=== PATIENT | male | born 1950 | race Caucasian/White ===

== ENCOUNTER 2022-10-10 08:04 | Outpatient (CLI) | payer MEDICARE, SELFPAY ==
--- NOTE | ~2022-10-10 | MR_ITS ---
EXAMINATION: MR pelvis wo/w con DATE: 10/10/2022 09:34 INDICATION: Malignant neoplasm of the prostate TECHNIQUE: Magnetic resonance imaging (MRI) of the pelvis was performed without and with 15 mL Multih ance intravenous contrast. Full-field sequences of the pelvis included axial and coronal T2-weighted SS FSE, axial, sagittal and coronal 2D FIESTA, axial 2D FIESTA FS, axial SSFSE-IR KAVIN, axial dual-ech o T1-weighted FSPGR, axial and coronal T1 weighted LAVA, 3D axial T2 Cube, axial diffusion-weighted S E with apparent diffusion coefficient (ADC) maps. Postcontrast sequences included a time course axial T1-weighted LAVA and sagittal and coronal T1-weighted LAVA. COMPARISON: None. FINDINGS: There is a small collection of T2 hyperintense likely hydrogel situated between the rectum and the no rmal sized prostate. The hydrogel spacer measures 3.4 cm left to right, 2.7 cm craniocaudally and 1 c m in AP diameter. There is mild trabeculation of the bladder which can be seen in the setting of engineering project designer bertha outlet obstruction. The visualized portions of the bowels are unremarkable. No pathologically enl arged pelvic or inguinal lymphadenopathy. No free fluid in the pelvis. Small right and moderate-sized left fat-containing inguinal hernias. Likely degenerative mild cystic change at the anterosuperior f emoral head neck junction on the left. Marrow signal is otherwise normal with no pathologic marrow re placing process. IMPRESSION: 1. 3.4 x 2.7 x 1.0 cm likely hydrogel spacer situated between the anterior wall of the rectum and the normal sized prostate. 2. No evident metastatic disease. Reviewed, dictated and finalized at location A.
== END 2022-10-10 08:05 | disposition home or self-care (01) ==
PROVIDERS: PCP Internal Medicine; Visit Provider Radiology Radiation Oncology
DX: C61 Malignant neoplasm of prostate (principal)
CPT/HCPCS: 72197; A9577